=== PATIENT | female | born 1995 | race Hispanic/Latino ===

== ENCOUNTER 2017-09-16 09:33 | Emergency (ER) | payer MEDICAID, OTHER ==
[2017-09-16 10:07] LABS: APPEARANCE,URINE Cloudy (CLEAR); BILIRUBIN,URINE Negative (NEGATIVE); COLOR,URINE Dark Yellow (YELLOW); GLUCOSE, URINE (UA) Negative (NEGATIVE); KETONES,URINE Trace mg/dL (NEGATIVE); LEUKOCYTE ESTERASE ,URINE Small (NEGATIVE); NITRATE,URINE Negative (NEGATIVE); OCCULT BLOOD,URINE Negative (NEGATIVE); PH,URINE 5.5 (5.0-8.0); PROTEIN,URINE Negative (NEGATIVE)
[2017-09-16 10:09] LABS: HCG,QUAL RESULT NEGATIVE (NEGATIVE)
[2017-09-16 10:10] LABS: BACTERIA,URINE Few /HPF (None Seen); MUCUS,URINE Few LPF (None Seen); SQUAMOUS EPITHELIAL CELL,UR Few /HPF (0-2); WBC,URINE 0-1 /HPF (0-1)
== END 2017-09-16 11:27 | disposition home or self-care (01) ==
LOC: EDH 09:33
DX: R10.31 Right lower quadrant pain (principal); R35.0 Frequency of micturition
CPT/HCPCS: 76856; 81001; 81025